=== PATIENT | female | born 1965 | race Caucasian/White ===

== ENCOUNTER 2020-08-29 19:37 | Observation (INO) ==
[2020-08-29] MEDS ORDERED: Dexamethasone 4 MG/ML VIAL IVP ONE (20:23)
[2020-08-29] MEDS ORDERED: Ipratropium/Albuterol Neb 3 ML IH ONE (20:23)
[2020-08-29] MEDS ORDERED: Isovue-370 500 ML BOTTLE IVP ONE (20:25)
[2020-08-29] MEDS ORDERED: *HR* LORazepam 2 MG/ML VIAL IVP ONE (20:26)
[2020-08-29 20:43] LABS: Basophils # 0.1 K/mcL (0.0-0.2); Basophils % 0.3 %; Eosinophils # 0.6 K/mcL (0.0-0.6); Eosinophils % 2.9 %; Hematocrit 47.9 % (35.3-44.9); Hemoglobin 17.2 g/dL (11.5-15.4); Immature Granulocytes % 0.5 % (0-4); Lymphocytes # 1.4 K/mcL (0.6-4.6); Lymphocytes % 7.2 %; Mean Corpuscular HGB Conc 35.9 g/dL (31.6-35.5); Mean Corpuscular Hemoglobin 33.1 pg (28.0-33.3); Mean Corpuscular Volume 92.3 fL (83.0-100.0); Mean Platelet Volume 9.6 fL (9.4-12.4); Monocytes # 0.5 K/mcL (0.0-1.3); Monocytes % 2.4 %; Neutrophils # 16.7 K/mcL (1.6-8.9); Platelet Count 328 K/mcL (140-400); Red Blood Count 5.19 M/mcL (3.82-4.97); Red Cell Distribution Width 11.5 % (11.5-14.5); Segmented Neutrophils % 86.7 %; White Blood Count 19.3 K/mcL (4.3-11.1)
[2020-08-29 20:55] LABS: BUN/Creatinine Ratio 17 (6-26); Blood Urea Nitrogen 9 mg/dL (6-20); Calcium 10.6 mg/dL (8.6-10.3); Carbon Dioxide 24 mEq/L (23-29); Chloride 92 mEq/L (98-107); Glucose 165 mg/dL (70-105); Osmolality,Calculated 272 (280-300); Potassium 3.3 mEq/L (3.5-5.1); Sodium 130 mEq/L (136-145); eGFR For African Americans > 60 (> 60); eGFR For Non-African Americans > 60 (> 60)
[2020-08-29 21:02] LABS: Troponin I 0.04 ng/mL (< 0.04)
[2020-08-29] MEDS ORDERED: Azithromycin 500 MG in 0.9 % Sodium Chloride 250 ML IVPB ONE (21:05)
[2020-08-29] MEDS ORDERED: cefTRIAXone 1,000 MG in 0.9 % Sodium Chloride Mini Bag 100 ML IVPB ONE (21:05)
[2020-08-29] MEDS ORDERED: Naloxone 0.4 MG/ML INJ IVP PRN (22:41)
[2020-08-29] MEDS ORDERED: Ondansetron 4 MG/2 ML VIAL IVP PRN (22:41)
[2020-08-30] MEDS ORDERED: Melatonin 3 MG TABLET PO PRN (02:23)
[2020-08-30 05:15] LABS: Influenza A PCR Negative (Negative); Influenza B PCR Negative (Negative); Resp. Syncytial Virus PCR Negative (Negative)
[2020-08-30] MEDS: Nicotine 21 MG PATCH.TD24 TD SCH (05:25)
[2020-08-30 05:35] LABS: SARS-CoV-2 by PCR (In House) Negative (Negative)
[2020-08-30 06:17] LABS: Basophils % 0.1 %; Hematocrit 42.1 % (35.3-44.9); Immature Granulocytes % 1.2 % (0-4); Lymphocytes # 0.7 K/mcL (0.6-4.6); Lymphocytes % 4.3 %; Mean Corpuscular HGB Conc 35.4 g/dL (31.6-35.5); Mean Corpuscular Volume 93.1 fL (83.0-100.0); Mean Platelet Volume 9.5 fL (9.4-12.4); Monocytes # 0.1 K/mcL (0.0-1.3); Monocytes % 0.9 %; Neutrophils # 14.2 K/mcL (1.6-8.9); Platelet Count 260 K/mcL (140-400); Red Blood Count 4.52 M/mcL (3.82-4.97); Red Cell Distribution Width 11.5 % (11.5-14.5); Segmented Neutrophils % 93.5 %; White Blood Count 15.2 K/mcL (4.3-11.1)
[2020-08-30] MEDS: *HR* Heparin 5,000 UNIT/ML VIAL SQ SCH ×2 (06:18→16:42)
[2020-08-30 06:19] LABS: Hemoglobin 14.9 g/dL (11.5-15.4)
[2020-08-30 06:35] LABS: Troponin I 0.04 ng/mL (< 0.04)
[2020-08-30 06:51] LABS: Alanine Aminotransferase 15 Units/L (7-52); Albumin 4.3 g/dL (3.5-5.7); Albumin/Globulin Ratio 1.3 (1.1-2.2); Alkaline Phosphatase 107 Units/L (34-104); Aspartate Amino Transferase 25 Units/L (13-39); BUN/Creatinine Ratio 20 (6-26); Bilirubin,Total 1.2 mg/dL (0.3-1.0); Blood Urea Nitrogen 10 mg/dL (6-20); Calcium 10.1 mg/dL (8.6-10.3); Carbon Dioxide 22 mEq/L (23-29); Chloride 99 mEq/L (98-107); Globulin 3.2 g/dL (2.4-3.5); Glucose 152 mg/dL (70-105); Magnesium 1.7 mg/dL (1.6-2.6); Osmolality,Calculated 276 (280-300); Phosphorous 1.9 mg/dL (2.7-4.5); Potassium 3.9 mEq/L (3.5-5.1); Sodium 132 mEq/L (136-145); Total Protein 7.5 g/dL (6.4-8.9); eGFR For African Americans > 60 (> 60); eGFR For Non-African Americans > 60 (> 60)
[2020-08-30] MEDS: Ipratropium/Albuterol Neb 3 ML IH SCH ×3 (10:12→15:38)
[2020-08-30] MEDS: cefTRIAXone 1,000 MG in Water for inj. (sterile) 10 ML IVP SCH (10:30)
[2020-08-30] MEDS: predniSONE 20 MG TABLET PO SCH (10:30)
[2020-08-30] MEDS: Acetaminophen 325 MG TABLET PO PRN ×2 (11:01→20:07)
[2020-08-30] MEDS ORDERED: Azithromycin 500 MG in 0.9 % Sodium Chloride 250 ML IVPB SCH (21:00)
[2020-08-31] MEDS: Ipratropium/Albuterol Neb 3 ML IH SCH ×2 (00:02→03:29)
[2020-08-31 02:40] LABS: Basophils % 0.1 %; Hematocrit 40.9 % (35.3-44.9); Hemoglobin 14.2 g/dL (11.5-15.4); Immature Granulocytes % 0.6 % (0-4); Lymphocytes # 2.1 K/mcL (0.6-4.6); Lymphocytes % 14.4 %; Mean Corpuscular HGB Conc 34.7 g/dL (31.6-35.5); Mean Corpuscular Hemoglobin 32.4 pg (28.0-33.3); Mean Corpuscular Volume 93.4 fL (83.0-100.0); Mean Platelet Volume 9.3 fL (9.4-12.4); Monocytes # 0.8 K/mcL (0.0-1.3); Monocytes % 5.1 %; Neutrophils # 11.8 K/mcL (1.6-8.9); Platelet Count 255 K/mcL (140-400); Red Blood Count 4.38 M/mcL (3.82-4.97); Red Cell Distribution Width 11.4 % (11.5-14.5); Segmented Neutrophils % 79.8 %; White Blood Count 14.8 K/mcL (4.3-11.1)
[2020-08-31 03:06] LABS: BUN/Creatinine Ratio 27 (6-26); Blood Urea Nitrogen 13 mg/dL (6-20); Calcium 9.4 mg/dL (8.6-10.3); Carbon Dioxide 25 mEq/L (23-29); Chloride 98 mEq/L (98-107); Glucose 109 mg/dL (70-105); Osmolality,Calculated 271 (280-300); Potassium 3.7 mEq/L (3.5-5.1); Sodium 130 mEq/L (136-145); eGFR For African Americans > 60 (> 60); eGFR For Non-African Americans > 60 (> 60)
[2020-08-31] MEDS: *HR* Heparin 5,000 UNIT/ML VIAL SQ SCH (05:13)
[2020-08-31] MEDS: Acetaminophen 325 MG TABLET PO PRN (05:13)
[2020-08-31] MEDS: cefTRIAXone 1,000 MG in Water for inj. (sterile) 10 ML IVP SCH (09:40)
[2020-08-31] MEDS: Nicotine 21 MG PATCH.TD24 TD SCH (09:40)
[2020-08-31] MEDS: predniSONE 20 MG TABLET PO SCH (09:40)
[2020-08-31 11:04] VITALS: BP 162/83
== END 2020-08-31 12:15 | disposition home or self-care (01) ==
LOC: 2ANU 19:37 → EMEROOARM 19:37 → SUATTDRO 21:47 → 2ANU 23:15
PROVIDERS: ADMIT Student in an Organized Health Care Education/Training Program; ATTEND Internal Medicine